=== PATIENT | male | born 1985 | race Two or more races ===

== ENCOUNTER 2020-08-18 19:59 | Emergency (ER) | payer OTHER ==
[~2020-08-18] VITALS: Ht 167.6 cm; Wt 81.6 kg
[2020-08-18] MEDS ORDERED: BACITRACIN TOP OINT 1 UD PKG TOP ONE ×2 (22:13→22:15)
[2020-08-18 23:00] VITALS: BP 141/85
== END 2020-08-18 23:25 | disposition home or self-care (01) ==
LOC: ER 19:59
DX: M79.89 Other specified soft tissue disorders (principal)
CPT/HCPCS: 73140